=== PATIENT | female | born 1950 | race Caucasian/White ===

== ENCOUNTER 2019-09-07 11:56 | Outpatient (CLI) | payer MEDICARE, SELFPAY ==
--- NOTE | ~2019-09-07 | XR_ITS ---
EXAMINATION: XR chest 2V DATE: 09/07/2019 13:40 INDICATION: Dyspnea on exertion. Preop. TECHNIQUE: Frontal and lateral views of the chest were obtained. COMPARISON: None. FINDINGS: The chest demonstrates clear lungs without pneumonia, pleural effusion, or pneumothorax. Th e heart size is normal. IMPRESSION: 1. No acute cardiopulmonary disease. Reviewed, dictated and finalized at location A.
[2019-09-07 13:53] LABS: Basophils Absolute Auto 0.1 K/mm3 (0.0-0.1); Basophils Percent Auto 1.1 % (0.2-1.2); Eosinophils Absolute Auto 0.3 K/mm3 (0-0.3); Eosinophils Percent Auto 3.1 % (0-4.4); Hematocrit 44.4 % (37.0-47.0); Hemoglobin 14.5 g/dL (12.0-15.0); Immature Granulocyte Absolute 0.03 K/mm3 (0.00-0.031); Immature Granulocyte Percent A 0.4 % (0-0.5); Lymphocytes Absolute Auto 2.07 K/mm3 (0.9-3.2); Lymphocytes Percent Auto 25.7 % (18.3-44.2); Mean Corpuscular HGB Conc 32.7 g/dl (32-36); Mean Corpuscular Hemoglobin 31.5 pg (26-34); Mean Corpuscular Volume 96.5 fl (80-100); Mean Platelet Volume 11.2 fl (7.4-10.4); Monocytes Absolute Auto 0.7 K/mm3 (0.1-0.6); Monocytes Percent Auto 8.1 % (2.6-8.5); Neutrophils Percent Auto 61.6 % (45.5-73.1); Platelet Count Result 249 k/mm3 (150-375); Red Cell Distribution Width 11.7 % (11.5-14.5); White Blood Count 8.1 K/mm3 (4.5-10.0)
[2019-09-07 14:02] LABS: Urine Cotinine NEGATIVE
[2019-09-07 14:13] LABS: Hemoglobin A1C 5.7 % (<5.7)
[2019-09-07 14:14] LABS: Albumin Level 4.5 g/dL (3.5-5.1); Blood Urea Nitrogen 16 mg/dL (7-17); Calcium 9.8 mg/dL (8.4-10.2); Carbon Dioxide 31 mmol/L (22-30); Chloride 103 mmol/L (98-107); Estimated Glomerular Filt Rate > 60; Glucose 96 mg/dL (65-105); Potassium 4.5 mmol/L (3.4-5.0); Sodium 139 mmol/L (137-145)
== END 2019-09-07 11:57 | disposition home or self-care (01) ==
PROVIDERS: PCP Family Medicine Adolescent Medicine; Visit Provider Orthopaedic Surgery
DX: Z01.818 Encounter for other preprocedural examination (principal); M17.12 Unilateral primary osteoarthritis, left knee; E78.5 Hyperlipidemia, unspecified; R06.09 Other forms of dyspnea
CPT/HCPCS: 36415; 71046; 80048; 80307; 82040; 83036; 85025; 87070

== ENCOUNTER 2019-09-12 07:49 | Outpatient (CLI) | payer MEDICARE, SELFPAY ==
--- NOTE | ~2019-09-12 | NM_ITS ---
EXAMINATION: NM xiomara stress w perfusion DATE: 09/12/2019 10:46 INDICATION: Dyspnea TECHNIQUE: Rest images were obtained following intravenous administration of 9.2 mCi Tc99m tetrofosmi n (Myoview). The patient was infused intravenously with Lexiscan (Regadenoson). Then, 88.3 mCi Tc99m tetrofosmin (Myoview) was administered intravenously, and stress images were obtained. Data was recon structed into short axis and horizontal and vertical long axis SPECT images. Gated SPECT images were also obtained. COMPARISON: None. FINDINGS: There is no definite reversible or fixed perfusion abnormality to suggest ischemia or infar ction. There is normal left ventricular chamber size, wall motion and ejection fraction. Left ventr icular ejection fraction measures >70%. IMPRESSION: 1. Normal myocardial perfusion at rest and during stress. 2. Left ventricular ejection fraction measuring >70%. Reviewed, dictated and finalized at location A.
--- NOTE | 2019-09-12 09:20 | EST_ITS ---
Patient Info Name: Nola Vergara Age: 69 years : 1950 Gender: Female Ht: 62 in Wt: 140 lbs BSA: 1.68 m2 Exam Date: 09/12/2019 9:26 AM Exam Location: [facility] Stress Patient Status: Outpatient Admit Date: 09/12/2019 Staff Ordering Physician: Nicolas Temple DO Attending Provider: Nicolas Temple DO Exercise Technologist: Haile Jimenez RDCS, RT Exercise Physician: Nicolas Temple DO Exam Type: CA stress xiomara w NM Study Info A regadenoson stress test was performed. Summary 1. 1. Negative lexiscan stress test for ischemic ST changes by ECG criteria. 2. 2. Baseline hypertension. 3. 3. Nuclear scan to follow and will be reported separately. Please correlate with it. 4. 4. Patient informed of the above results. Protocol: Lexiscan Stress ECG Details Stage: REST Duration (min): 4 min : 53 sec HR (bpm): 78 SBP (mmHg): 210 DBP (mmHg): 75 Stage: REST Duration (min): 22 min : 48 sec HR (bpm): 80 SBP (mmHg): 173 DBP (mmHg): 86 Stage: STAGE 1 Duration (min): 1 min : 0 sec HR (bpm): 110 SBP (mmHg): 180 DBP (mmHg): 60 Stage: RECOVERY Duration (min): 1 min : 0 sec HR (bpm): 114 SBP (mmHg): 180 DBP (mmHg): 60 Stage: RECOVERY Duration (min): 2 min : 0 sec HR (bpm): 117 SBP (mmHg): 180 DBP (mmHg): 60 Stage: RECOVERY Duration (min): 3 min : 0 sec HR (bpm): 109 SBP (mmHg): 166 DBP (mmHg): 62 Stage: RECOVERY Duration (min): 3 min : 29 sec HR (bpm): 110 SBP (mmHg): 166 DBP (mmHg): 62 Rest HR: 80 bpm Peak HR: 119 bpm Rest Sys BP: 173 mmHg Peak Sys BP: 180 mmHg Max Pred HR: 152 bpm % Max Pred HR: 78 % Target HR: 129 bpm Max RPP: 21,420 bpm*mmHg Termination Reason: Completed protocol Cardiac Symptoms: Strange feeling Total Time: 1 min : 0 sec Rest Georges BP: 86 mmHg Peak Georges BP: 60 mmHg Total Dose: 0.4 mg Resting ECG Sinus rhythm, LAFB, LVH. Stress ECG No ST changes. Arrhythmias None. Report Signatures
== END 2019-09-12 07:50 | disposition home or self-care (01) ==
PROVIDERS: PCP Family Medicine Adolescent Medicine; Visit Provider Internal Medicine Cardiovascular Disease
DX: R06.09 Other forms of dyspnea (principal)
CPT/HCPCS: 78452; 93017; A9502; J2785

== ENCOUNTER 2019-12-27 08:02 | Outpatient (CLI) | payer MEDICARE, SELFPAY ==
[2019-12-27 09:40] LABS: Basophils Absolute Auto 0.1 K/mm3 (0.0-0.1); Basophils Percent Auto 1.1 % (0.2-1.2); Eosinophils Absolute Auto 0.3 K/mm3 (0-0.3); Eosinophils Percent Auto 4.7 % (0-4.4); Hematocrit 43.2 % (37.0-47.0); Hemoglobin 14.3 g/dL (12.0-15.0); Immature Granulocyte Absolute 0.02 K/mm3 (0.00-0.031); Immature Granulocyte Percent A 0.3 % (0-0.5); Lymphocytes Absolute Auto 1.57 K/mm3 (0.9-3.2); Lymphocytes Percent Auto 24.6 % (18.3-44.2); Mean Corpuscular HGB Conc 33.1 g/dl (32-36); Mean Corpuscular Hemoglobin 32.1 pg (26-34); Mean Corpuscular Volume 97.1 fl (80-100); Mean Platelet Volume 11.4 fl (7.4-10.4); Monocytes Absolute Auto 0.5 K/mm3 (0.1-0.6); Monocytes Percent Auto 8.3 % (2.6-8.5); Neutrophils Absolute Auto 3.9 K/mm3 (1.3-6.7); Platelet Count Result 240 k/mm3 (150-375); Red Blood Count 4.45 M/mm3 (4.2-5.4); Red Cell Distribution Width 11.6 % (11.5-14.5); White Blood Count 6.4 K/mm3 (4.5-10.0)
[2019-12-27 09:49] LABS: Urine Cotinine NEGATIVE
[2019-12-27 09:58] LABS: Albumin Level 4.4 g/dL (3.5-5.1); Blood Urea Nitrogen 15 mg/dL (7-17); Calcium 9.7 mg/dL (8.4-10.2); Carbon Dioxide 30 mmol/L (22-30); Chloride 102 mmol/L (98-107); Estimated Glomerular Filt Rate > 60; Glucose 114 mg/dL (65-105); Potassium 4.2 mmol/L (3.4-5.0); Sodium 139 mmol/L (137-145)
[2019-12-27 10:17] LABS: Hemoglobin A1C 5.8 % (<5.7)
== END 2019-12-27 08:03 | disposition home or self-care (01) ==
PROVIDERS: PCP Family Medicine Adolescent Medicine; Visit Provider Orthopaedic Surgery
DX: Z01.818 Encounter for other preprocedural examination (principal); M19.90 Unspecified osteoarthritis, unspecified site
CPT/HCPCS: 36415; 80048; 80307; 82040; 83036; 85025; 86850; 86900; 86901; 87070

== ENCOUNTER 2020-01-04 00:50 | Outpatient (CLI) | payer MEDICARE, SELFPAY ==
[2020-01-04 18:05] LABS: SARS-CoV-2 RNA PCR Negative
== END 2020-01-04 00:51 | disposition home or self-care (01) ==
LOC: ANHCOVIDDT 00:51
PROVIDERS: PCP Family Medicine Adolescent Medicine; Visit Provider Orthopaedic Surgery
DX: Z20.828 Contact with and (suspected) exposure to other viral communicable diseases (principal)
CPT/HCPCS: 87635; C9803; U0003

== ENCOUNTER 2020-01-07 02:46 | Day surgery (SDC) | payer MEDICARE, SELFPAY ==
[2019-09-07 13:01] VITALS: BP 167/71; PULSE 66; RESP 18; TEMP 37.2; O2SAT 100; BMI 25.1
[2019-12-27 08:12] VITALS: BP 153/65; PULSE 72; RESP 16; TEMP 37.4; O2SAT 100; BMI 24.0
--- NOTE | 2020-01-04 11:09 | HP_ITS ---
DATE OF SERVICE: 01/07/2020. ADMITTING DIAGNOSIS: Degenerative joint disease, left knee. The patient is a 69-year-old female patient of Dr. Escalona, who presents today for a left total knee arthroplasty. She has been having pain in this knee for years. She has been treating this nonsurgically, cortisone injections as well as anti-inflammatories and she has severe lateral compartment arthritis. She has reached to a point where she feels she is ready to proceed with total knee arthroplasty, rather than continuing nonsurgical treatment and her last injection was on September 18 of this year. She has had no previous surgeries. CURRENT MEDICATIONS: Takes simvastatin 20 mg daily, vitamin D daily, multivitamin daily, Aleve on a daily basis. ALLERGIES: SHE HAS NO KNOWN DRUG ALLERGIES. FAMILY HISTORY: Significant for kidney disease. SOCIAL HISTORY: She is a nonsmoker, nondrinker. PHYSICAL EXAMINATION: VITAL SIGNS: She is 5 feet 2 inches, 137 pounds. Other vital signs per nursing on the morning of surgery. HEENT: Grossly normal. LUNGS: Clear bilaterally. HEART: Regular rate and rhythm. EXTREMITIES: The patient walks with a minimal limp. She has an obvious valgus deformity and left knee range of motion is 0-140 degrees. She does seem to have a good endpoint with valgus stress of the MCL, which partially corrects with varus stress. Hip range of motion is full without discomfort. Negative Stinchfield maneuver. 5/5 quad strength. She has intact sensation in the left lower extremity. 2+ dorsalis pedis and posterior tibial pulse. SKIN: All normal, except for 1 small skin lesion, which appeared recently which is 2 inches to the distal edge of the tibial tubercle. IMAGING DATA: X-rays demonstrate severe lateral compartment arthritis. She has a grade 2 valgus deformity. IMPRESSION: Going to felt as severe lateral compartment arthritis with continued symptoms. She feels again she is ready to proceed with total knee arthroplasty. Surgical procedure as well as risks and complications were discussed. All questions were answered. We will proceed. The patient will see Dr. Sullivan for presurgical clearance. She has also seen Dr. Temple and has had a recent stress test done, which was normal and showed an ejection fraction of 70%. The patient will avoid her Aleve and any other aspirin, ibuprofen products 1 week prior to surgery. Her nasal swab was negative. Chem panel, creatinine 0.80, GFR greater than 60. The rest of Chem panel was within normal limits. Hemoglobin is 14.3, platelets are 240. D I MT: Ary
[2020-01-07] VITALS (13 sets, daily range): BP systolic 116–155; BP diastolic 49–61; PULSE 74–94; RESP 8–18; TEMP 36.2–36.7; O2SAT 95–100; BMI 23.8
--- NOTE | ~2020-01-07 | XR_ITS ---
EXAMINATION: XR knee LT 2V DATE: 01/07/2020 11:05 CDT INDICATION: Left total knee arthroplasty TECHNIQUE: 2 views left knee FINDINGS: There is a left total knee arthroplasty in expected position. Subcutaneous gas with fluid and air in the joint are consistent with recent surgery. No evidence of periprosthetic fracture. IMPRESSION: 1. Recent left total knee arthroplasty. Reviewed, dictated and finalized at location B.
[2020-01-07] MEDS: ACETAMINOPHEN 500 MG TABLET 1000 MG PO ×4 (06:30→23:46)
[2020-01-07] MEDS: KETOROLAC 15 MG/ML VIAL (*BKC) IV PUSH (07:00)
[2020-01-07] MEDS: LACTATED RINGERS 1,000 ML 30 ML IV CONT ×3 (07:00→11:22)
[2020-01-07] MEDS: TRANEXAMIC ACID 1,000MG/ISO100 1,000 MG/100 ML BAG 200 MG IVPB (07:00)
--- NOTE | 2020-01-07 07:01 | WPDANESEPPF ---
Anes - Initial Pre Proc Eval Procedure: Operation Date: 01/07/20 07:30 Proposed Procedures p Left Total Knee Arthroplasty - Kenneth Chowdhury MD Date/Time: 01/07/20 07:01 Surgeon: Kenneth Chowdhury MD Pre Op Diagnosis: OA Left Knee Patient Data Age: 69 Gender: F Height: 5 ft 3 in Weight: 61.5 kg Last Vital Signs Temp 37.4 C 12/27/19 08:12 Pulse 72 12/27/19 08:12 Resp 16 12/27/19 08:12 BP 153/65 H 12/27/19 08:12 Pulse Ox 100 12/27/19 08:12 Allergies Allergy/AdvReac Type Severity Reaction Status Date / Time No Known Allergies Allergy Verified 12/27/19 08:10 Home Medications Medication Instructions Recorded Confirmed Type Bcomplex-C #13-folic acid 1 mg-vit 1 tablet PO DAILY 08/30/19 12/27/19 History D3 1,750 unit disintegrating tablet cholecalciferol (vitamin D3) 25 25 mcg PO DAILY 08/30/19 12/27/19 History mcg (1,000 unit) capsule naproxen sodium 220 mg capsule 440 mg PO DAILY PRN 08/30/19 12/27/19 History simvastatin 20 mg tablet 40 mg PO DAILY tablet 08/30/19 12/27/19 History Patient hx anesthesia problems: none Family hx anesthesia problems: none PMFSH Past Medical History Medical History Hyperlipidemia Surgical History Surgical History History of breast biopsy History of colonoscopy Family History Family History Father Diabetes mellitus Family history of coronary artery disease Mother Hypertension Family history of kidney disease Other Family history of malignant neoplasm of breast in first degree relative Social History Social History Smoking status: Never smoker Alcohol intake: current Anes - Eval Final PreProcedure Day of Procedure 01/07/20 07:01 Patient weight: normal Heart: regular rate and rhythm Lungs: clear to auscultation Airway: Mallampati scale class II Neurological: alert and oriented Last oral intake: >/= 8 hours ASA classification: II Emergent: no Anesthetic plan: proceed Anesthesia type and monitoring: general LMA and standard monitoring Informed Consent: The patient's anesthetic plan and its attendant risks and benefits were discussed with the patient/family/POA. Questions were solicited and answers provided to the satisfaction of the patient/family/POA.
--- NOTE | 2020-01-07 07:20 | WPDHPUPDATE1 ---
History and Physical Update Update Date/Time: 01/07/20 07:20 History and Physical has been reviewed, including an updated exam of the patient. There are NO changes in the patient's condition.1mm echar pretibial benign. Risks, benefits, and alternatives have been discussed and questions answered. Patient agrees to proceed with procedure.
[2020-01-07] MEDS: ceFAZolin 2 GM/D5W 50 ML 2 GM/50 ML BAG IVPB (07:28)
[2020-01-07] MEDS: IBUPROFEN IV 800 MG/200 ML 800 MG/200 ML BAG 400 MG IVPB (08:02)
[2020-01-07] MEDS: ceFAZolin SODIUM 1 GM VIAL 3 GM IRRIGATION (08:24)
[2020-01-07] MEDS: GENTAMICIN BONE CEMENT REFOBACIN 1 EACH TOPICAL (09:33)
[2020-01-07] MEDS: ceFAZolin SODIUM 1 GM VIAL IV PUSH (09:57)
[2020-01-07] MEDS: TRANEXAMIC ACID 1,000 MG/10 ML AMPUL 1000 MG IV PUSH (09:57)
--- NOTE | 2020-01-07 10:24 | SUR.OPER ---
EBL 150 ml Urine output 300 ml
--- NOTE | 2020-01-07 11:15 | PM.PROC ---
Procedure Note - Detailed Date of procedure: 01/07/20 Pre-op diagnosis: OA Left Knee Osteoarthritis left knee with grade 2 valgus deformity Post-op diagnosis: same Procedure performed: Left total knee arthroplasty Description of procedure: Patient was brought to the operating room and general anesthesia was administered in the left leg prepped draped usual fashion. She received 2 g of Ancef weight based vancomycin 1 g of tranexamic acid preoperatively. Under anesthesia the knee had a few degrees of hyperextension. She had moderate lateral pseudolaxity and appeared to partially correct her grade 2 valgus deformity. The limb is exsanguinated and tourniquet elevated to 250 mmHg. A 7 in longitudinal midline incision was used and a vastus medialis splitting approach utilized. Infrapatellar and suprapatellar fat pads were excised the quadriceps synovectomy carried out. The patella showed mild central chondromalacia only otherwise there were no degenerative changes in the patella or the trochlea for that matter. A minimal lateral facetectomy was performed. A guide dorota was inserted down the femoral canal after aspiration of canal contents and according to preoperative templating, using the 4 degree setting 9 mm of bone removed the distal femur. This removed about 2 laterally. We were conservative due to her hyper extension. The PCL was released. Next the tibial was cut removing about a mm of bone from the low point of the lateral tibial plateau. This removed the lateral tibial osteophyte with the wafer fortunately. Alignment of the tibial cut was confirmed to be appropriate. Meniscal remnants were excised. In flexion the flexion gap measured 8 mm medially and 14 mm laterally. We used the femoral sizing guide set at 5? of external rotation and additionally rotating the posterior foot a mm or mm and a half posterior to the posterior lateral femoral condyle which matched Whitesides line exactly. There was full-thickness cartilage loss and some bony eburnation of the posterolateral femoral condyle resulting in hypoplasia there. We cut to a size 60 which was just a little bit wide approximately 2 mm wider than the distal surface of the femur but fit appropriately relative to the anterior cortex. We trialed and I noted that with the 10 CR insert the knee was tighter medially than laterally. There was a is substantial lack of extension. We removed additional 2 mm of bone from the distal femur at this time chamfers revisited. The tibia was sized to a 67 which fit line to line posterolateral and anteromedial with the component had proper rotation referenced off the medial 1/3 of the tibial tubercle and the anterior cortex of the tibia as well as the 2nd metatarsal. This was punched. We trialed again and the knee lacked about 5? of extension. It was quite tight laterally in this position opening up medially about 2 or 3 mm. We pie crusted the ITB band which brought us out to few degrees short of full extension with the 10 mm insert. At 90? of flexion the lateral side opened up 3-4 mm in the medial side was tight so we had poor balance at this time at 90? of flexion. Due to the fact that the size 60 femoral component was a little bit wide, I elected to downsize to a size 57.5 femur. We removed the medial pin from the back of the cutting block so that the lateral film pain purchase in the posterior mm in pin hole on the distal femur with the medial side good flow. We externally rotated this an additional 2 mm so that the, guide set flush on the anterior cortex medial edge and was going to remove an additional 2 or 2.5 mm from the posterior aspect of the medial femoral condyle to give us better balance in flexion. The cutting block was stabilized in this position with threaded pins and the posterior medial cut was revisited and that chamfer cuts and the anterior cut. I should mention that before positioning the cutting guide we did remove an additional 2 mm of bone from the
--- NOTE | 2020-01-07 12:00 | ADMGEN ---
This patient, Nola Vergara, was admitted to 2 Medical Room 241-. Patient/family oriented to hospital policies and general routines including ID bracelet, bed and alarms, visiting hours, pain management, procedures, bathroom and other care routines, personal items, smoking policy, room service/diet, and visiting hours. Valuables list has been completed. Information on how to activate the Rapid Response Team has been discussed. Patient/Family are encouraged to report perceived risks to care and to ask questions if they do not understand what they are told or what they should do.
[2020-01-07] MEDS: SODIUM CHLORIDE 0.9% IV 1,000 ML 125 ML IV CONT (13:39)
[2020-01-07] MEDS: ONDANSETRON INJ 4 MG/2 ML VIAL IV PUSH (15:21)
[2020-01-07] MEDS: SENNA/DOCUSATE SODIUM TABLET 2 TAB PO (16:58)
[2020-01-07] MEDS: FAMOTIDINE 20 MG TABLET PO (22:02)
[2020-01-07] MEDS: APIXABAN 2.5 MG TABLET PO (22:03)
[2020-01-08] VITALS: BP 125/51; PULSE 66; RESP 20; TEMP 36.7; O2SAT 97
[2020-01-08 04:00] VITALS: BP 112/49; PULSE 71; RESP 20; TEMP 36.7; O2SAT 100
[2020-01-08 06:03] LABS: Basophils Percent Auto 0.3 % (0.2-1.2); Eosinophils Percent Auto 0.1 % (0-4.4); Hematocrit 30.6 % (37.0-47.0); Hemoglobin 10.3 g/dL (12.0-15.0); Immature Granulocyte Absolute 0.09 K/mm3 (0.00-0.031); Immature Granulocyte Percent A 0.6 % (0-0.5); Lymphocytes Absolute Auto 1.58 K/mm3 (0.9-3.2); Lymphocytes Percent Auto 10.8 % (18.3-44.2); Mean Corpuscular HGB Conc 33.7 g/dl (32-36); Mean Corpuscular Hemoglobin 31.9 pg (26-34); Mean Corpuscular Volume 94.7 fl (80-100); Mean Platelet Volume 11.4 fl (7.4-10.4); Monocytes Absolute Auto 1.5 K/mm3 (0.1-0.6); Monocytes Percent Auto 9.9 % (2.6-8.5); Neutrophils Absolute Auto 11.5 K/mm3 (1.3-6.7); Neutrophils Percent Auto 78.3 % (45.5-73.1); Platelet Count Result 174 k/mm3 (150-375); Red Blood Count 3.23 M/mm3 (4.2-5.4); Red Cell Distribution Width 11.4 % (11.5-14.5); White Blood Count 14.7 K/mm3 (4.5-10.0)
[2020-01-08] MEDS: ACETAMINOPHEN 500 MG TABLET 1000 MG PO ×2 (06:05→11:57)
[2020-01-08 06:17] LABS: Blood Urea Nitrogen 11 mg/dL (7-17); Calcium 8.5 mg/dL (8.4-10.2); Carbon Dioxide 26 mmol/L (22-30); Chloride 102 mmol/L (98-107); Estimated CRCL calculation 48 ml/min; Estimated Glomerular Filt Rate > 60; Glucose 112 mg/dL (65-105); Potassium 3.6 mmol/L (3.4-5.0); Sodium 134 mmol/L (137-145)
--- NOTE | 2020-01-08 06:25 | PM.PNORT ---
Progress Note: A&P Additional Plan POD 1 alert avss labs-noted. pt had quite a bit of nausea yesterday right after surg. doing better this am. pain is well controlled, wd-dry pt has been up walking yesterday, plan to have pt work with PT today-if does well with morning PT will send home, if pt feels she needs second PT session will then d/c later today Subjective Subjective Date/Time Seen: 01/08/20 06:25 Objective Data Vital Signs Vital Signs: Vital Signs - 24 hr 01/07/20 07:28 01/07/20 10:46 01/07/20 11:00 Temperature 36.4 C L 36.2 C L Pulse Rate 74 81 94 Respiratory Rate 18 8 L 12 Blood Pressure 155/61 H 120/51 L 118/51 L Pulse Oximetry 100 99 100 01/07/20 11:15 01/07/20 11:30 01/07/20 11:45 Temperature Pulse Rate 91 91 86 Respiratory Rate 13 11 L 16 Blood Pressure 126/53 L 116/57 L 130/49 L Pulse Oximetry 97 96 95 01/07/20 12:00 01/07/20 12:05 01/07/20 12:20 Temperature 36.6 C 36.4 C Pulse Rate 89 89 93 Respiratory Rate 13 16 14 Blood Pressure 128/53 L 128/53 L 130/51 L Pulse Oximetry 100 98 97 01/07/20 12:50 01/07/20 13:50 01/07/20 18:00 Temperature 36.5 C 36.5 C 36.7 C Pulse Rate 83 81 81 Respiratory Rate 16 16 14 Blood Pressure 126/52 L 134/59 L 135/57 L Pulse Oximetry 98 99 100 01/07/20 20:00 01/08/20 00:00 01/08/20 04:00 Temperature 36.7 C 36.7 C 36.7 C Pulse Rate 79 66 71 Respiratory Rate 18 20 20 Blood Pressure 137/49 L 125/51 L 112/49 L Pulse Oximetry 99 97 100 Intake/Output Intake/Output: Intake & Output 01/05/20 01/06/20 01/07/20 01/08/20 23:59 23:59 23:59 23:59 Intake Total 2360 490 Output Total 600 800 Balance 1760 -310 Meds/Results Medications: Active Medications Generic Name Dose Route Start Last Admin Trade Name Freq PRN Reason Stop Dose Admin Acetaminophen 1,000 mg 01/07/20 12:03 01/08/20 06:05 Tylenol Tablet PO 1,000 mg Q6H BONITA Administration Apixaban 2.5 mg 01/07/20 21:00 01/07/20 22:03 Eliquis PO 01/19/20 09:01 2.5 mg Q12HR BONITA Administration Celecoxib 200 mg 01/08/20 08:00 Celebrex PO DAILY@0800 BONITA Diphenhydramine HCl 25 mg 01/07/20 12:03 Benadryl Inj IV PUSH Q6H PRN Itching Famotidine 20 mg 01/07/20 21:00 01/07/20 22:02 Pepcid PO 20 mg Q12HR BONITA Administration Cefazolin Sodium 1 gm in 50 mls @ 100 mls/hr 01/07/20 15:00 01/08/20 06:05 Ancef 1 Gm/D5w 50 Ml Pm IVPB 01/08/20 07:01 100 mls/hr Q8H BONITA Administration Vancomycin HCl 1,000 mg in 250 mls @ 250 mls/hr 01/07/20 19:00 01/08/20 05:20 Vancomycin 1,000 Mg/D5w 250 Ml IVPB 01/08/20 19:01 Infused Q12H [facility] Infusion Morphine Sulfate 2 mg 01/07/20 12:03 Morphine Sulfate Inj IV PUSH Q2H PRN Breakthrough pain rated 4-6 Naloxone HCl 0.1 mg 01/07/20 12:03 Narcan IV PUSH Q2M PRN Opiate Reversal Ondansetron HCl 4 mg 01/07/20 12:03 01/07/20 15:21 Zofran Inj IV PUSH 4 mg Q4H PRN Administration Nausea And Vomiting Oxycodone HCl 2.5 mg 01/07/20 14:00 01/08/20 06:05 Roxicodone Ir Tablet PO 2.5 mg Q4H BONITA Administration Oxycodone HCl 2.5 mg 01/07/20 12:03 Roxicodone Ir Tablet PO Q4H PRN Pain Rated 1-3 Polyethylene Glycol 17 gm 01/08/20 09:00 Miralax PO QAM BONITA Senna/Docusate Sodium 2 tab 01/07/20 17:00 01/07/20 16:58 Senokot S Tablet PO 2 tab BID BONITA Administration Simvastatin 40 mg 01/08/20 09:00 Zocor PO DAILY BONITA Vitamin D 1,000 unit 01/08/20 09:00 Vitamin D PO DAILY [facility] Radiology Results: ITS Impressions Knee X-Ray 01/07/20 11:05 IMPRESSION: 1. Recent left total knee arthroplasty. Labs Labs: Laboratory Results - last 24 hr 01/08/20 01/08/20 05:06 05:06 WBC 14.7 H RBC 3.23 L Hgb 10.3 L D Hct 30.6 L MCV 94.7 MCH 31.9 MCHC 33.7 RDW 11.4 L Plt Count 174 MPV 11.4 H Immature Gran % (Auto) 0.6 H Neut % (Auto) 78.3 H
--- NOTE | 2020-01-08 07:35 | P.PNAN_ITS ---
Anes - Prog Note Post-Op Date/Time: 01/08/20 07:35 Cardiovascular status: normal Respiratory status: normal Airway patency: baseline Mental status: baseline Post-Op hydration status: normal Vital Signs: Last Vital Signs Temp 36.7 C 01/08/20 04:00 Pulse 71 01/08/20 04:00 Resp 20 01/08/20 04:00 BP 112/49 L 01/08/20 04:00 Pulse Ox 100 01/08/20 04:00 I/O: Intake & Output 01/07/20 01/07/20 01/08/20 15:59 23:59 07:59 Intake Total 550 1660 540 Output Total 600 800 Balance 550 1060 -260 Laboratory Tests 01/08/20 05:06 01/08/20 05:06 01/08/20 01/08/20 05:06 05:06 WBC 14.7 H RBC 3.23 L Hgb 10.3 L D Hct 30.6 L MCV 94.7 MCH 31.9 MCHC 33.7 RDW 11.4 L Plt Count 174 MPV 11.4 H Immature Gran % (Auto) 0.6 H Neut % (Auto) 78.3 H Lymph % (Auto) 10.8 L [place] % (Auto) 9.9 H Eos % (Auto) 0.1 Baso % (Auto) 0.3 Lymph # (Auto) 1.58 [place] # (Auto) 1.5 H Eos # (Auto) 0.0 Baso # (Auto) 0.0 Abs Immat Gran (auto) 0.09 H Absolute Neuts (auto) 11.5 H Absolute Nucleated RBC 0.0 Nucleated RBC % 0.0 Sodium 134 L Potassium 3.6 Chloride 102 Carbon Dioxide 26 BUN 11 Creatinine 0.80 Estim Creat Clear Calc 48 Estimated GFR > 60 Glucose 112 H Calcium 8.5 Post-procedural complaints: none Patient Feedback: Patient satisfied with anesthetic care.
[2020-01-08 08:00] VITALS: BP 122/63; PULSE 74; RESP 15; TEMP 36.4; O2SAT 97
[2020-01-08] MEDS: SENNA/DOCUSATE SODIUM TABLET 2 TAB PO (08:36)
[2020-01-08] MEDS: polyethylene glycoL 3350 17 GM POWD.PACK PO (08:36)
[2020-01-08] MEDS: SIMVASTATIN 20 MG TABLET 40 MG PO (08:37)
[2020-01-08] MEDS: APIXABAN 2.5 MG TABLET PO (08:37)
[2020-01-08] MEDS: FAMOTIDINE 20 MG TABLET PO (08:37)
[2020-01-08] MEDS: CHOLECALCIFEROL 1,000 UNIT TABLET 1000 UNITS PO (08:37)
[2020-01-08] MEDS: CELECOXIB 200 MG CAPSULE PO (08:37)
--- NOTE | 2020-01-08 20:46 | DS_ITS ---
DATE OF DISCHARGE: 01/08/2020 DIAGNOSIS: Degenerative joint disease, left knee. The patient is a 69-year-old female who underwent left total knee arthroplasty by Dr. Chowdhury. On 01/07/2020, underwent procedure without any complications. Postoperatively, she was quite a bit nauseated immediately after surgery and through the latter part of the day on the day of surgery. This is improved overnight to the point where on postop day 1, her nausea has completely gone. She is weightbearing as tolerated. She is on scheduled Tylenol as well as oxycodone 2.5 mg for pain control. She is also on Celebrex once a day. Her wound is dry. She has had a Mepilex dressing over it. Neurovascularly, she is intact. She was up walking on the day of surgery and is comfortable. Pain is well controlled. We will schedule her to be discharged home on January 07. Postop day 1, hemoglobin was 10.3, platelets 174, sodium is slightly low 134, but the patient was asymptomatic from this. The patient was advised to keep the leg elevated at home, but do her exercise on a regular basis. She has outpatient therapy starting on of this week. She will also go home on Senokot and MiraLAX for constipation. The patient was advised any questions or concerns when she goes home, she is to call the office; otherwise, we will see her on appointed date. D I MT: Ary
== END 2020-01-08 12:32 | disposition home or self-care (01) ==
LOC: ANHSURGERY 06:04 → ANH2MED 12:09
PROVIDERS: Physician Assistant Surgical; PCP Family Medicine Adolescent Medicine; Visit Provider Orthopaedic Surgery
PROC: (CPT 27447; principal; 2020-01-07 07:30)
DX: M17.12 Unilateral primary osteoarthritis, left knee (principal); E78.5 Hyperlipidemia, unspecified
CPT/HCPCS: 27447; 36415; 73560; 80048; 85025; 97110; 97116; 97161; 97165; 97530; 97535; A9270; C1713; C1776; J0171; J0690; J1100; J1170; J1741; J1885; J2270; J2405; J2704; J2795; J3010; J3370; J7030; J7120

== ENCOUNTER 2020-04-14 01:00 | Outpatient (CLI) | payer MEDICARE, SELFPAY ==
[2020-04-14 17:42] LABS: SARS-CoV-2 RNA PCR Negative
== END 2020-04-14 01:01 | disposition home or self-care (01) ==
LOC: ANHCOVIDDT 01:00
PROVIDERS: PCP Family Medicine Adolescent Medicine; Visit Provider Internal Medicine Gastroenterology
DX: Z01.812 Encounter for preprocedural laboratory examination (principal); Z20.828 Contact with and (suspected) exposure to other viral communicable diseases
CPT/HCPCS: 87635; C9803; U0003

== ENCOUNTER 2020-04-16 02:04 | Day surgery (SDC) | payer MEDICARE, SELFPAY ==
[2020-04-09 10:33] VITALS: BMI 23.8
[2020-04-16 08:19] VITALS: BP 185/66; PULSE 73; RESP 18; TEMP 37.1; O2SAT 100; BMI 23.5
[2020-04-16] MEDS: LACTATED RINGERS 1,000 ML 150 ML IV CONT (08:29)
[2020-04-16] MEDS: AMPICILLIN 2 GM/NS 100 ML 2 GM/100 ML BAG IVPB (08:29)
--- NOTE | 2020-04-16 08:48 | WPDGICN ---
Assessment and Plan Assessment and plan (1) Encounter for screening colonoscopy: Code(s): Z12.11 - Encounter for screening for malignant neoplasm of colon Status: Acute Assessment and Plan: Patient appears to be at average risk for colon cancer. Screening colonoscopy advised now. Last exam was 10 years ago. Further recommendations may be given after endoscopy. GI Consult Note Consult date/time: 04/16/20 08:48 HPI: Nola Vergara is a 69 year old female Seen in evaluation at the request of Dr. Marily Garcia, also followed by Dr. Chance Sullivan. Patient presents for screening colonoscopy. She states that her current weight appetite bowel movements are normal. She denies any blood in her stools. Her appetite is normal. She denies any bleeding. She has had no abdominal pain. Family history is noncontributory. Review of Systems Review of Systems: All systems reviewed & are unremarkable except as noted in HPI and below PMFSH Past Medical History Medical History (Updated 04/16/20 @ 08:50 by Itz Ballard MD) Hyperlipidemia Surgical History Surgical History History of breast biopsy History of colonoscopy Family History Family History Father Diabetes mellitus Family history of coronary artery disease Mother Hypertension Family history of kidney disease Other Family history of malignant neoplasm of breast in first degree relative Social History Social History Smoking status: Never smoker Alcohol intake: never Substance use: never Substance use type: does not use Living arrangements: alone Gender identity (if verbalized by the patient): Female Spiritual care concerns: No Meds Home Medications and Allergies Home Medications Medication Instructions Recorded Confirmed Type Bcomplex-C #13-folic acid 1 mg-vit 1 tablet PO DAILY 08/30/19 04/09/20 History D3 1,750 unit disintegrating tablet cholecalciferol (vitamin D3) 25 25 mcg PO DAILY 08/30/19 04/09/20 History mcg (1,000 unit) capsule simvastatin 20 mg tablet 40 mg PO DAILY tablet 08/30/19 04/09/20 History acetaminophen 1,000 mg PO Q6H #90 tablet 01/08/20 04/09/20 Rx polyethylene glycol 3350 [Miralax] 17 g PO QAM #30 ea 01/08/20 Rx sennosides-docusate sodium 2 tab PO BID #60 tablet 01/08/20 Rx [Senokot-S] naproxen sodium [Aleve] 220 mg PO BID 04/09/20 04/09/20 History Allergies Allergy/AdvReac Type Severity Reaction Status Date / Time No Known Allergies Allergy Verified 04/09/20 10:28 Vital Signs Vital Signs - 24 hr 04/16/20 08:19 Temperature 98.8 F Pulse Rate 73 Respiratory Rate 18 Blood Pressure 185/66 H Pulse Oximetry 100 Exam Narrative: Exam Narrative: Physical exam reveals patient to be alert. Vital signs stable. HEENT exam unremarkable. She is anicteric. Lungs are clear to auscultation and percussion. Heart is without murmur or extra sounds. Abdominal exam bowel sounds are present soft nontender with no organomegaly. Digital external rectal exam is normal.
--- NOTE | 2020-04-16 08:57 | WPDANESEPPF ---
Anes - Initial Pre Proc Eval Procedure: Operation Date: 04/16/20 09:00 Proposed Procedures p Screening Colonoscopy - Itz Ballard MD Date/Time: 04/16/20 08:57 Surgeon: Itz Ballard MD Pre Op Diagnosis: Neoplasm Screening Patient Data Age: 69 Gender: F Height: 5 ft 3 in Weight: 60.2 kg Last Vital Signs Temp 98.8 F 04/16/20 08:19 Pulse 73 04/16/20 08:19 Resp 18 04/16/20 08:19 BP 185/66 H 04/16/20 08:19 Pulse Ox 100 04/16/20 08:19 Allergies Allergy/AdvReac Type Severity Reaction Status Date / Time No Known Allergies Allergy Verified 04/09/20 10:28 Home Medications Medication Instructions Recorded Confirmed Type Bcomplex-C #13-folic acid 1 mg-vit 1 tablet PO DAILY 08/30/19 04/09/20 History D3 1,750 unit disintegrating tablet cholecalciferol (vitamin D3) 25 25 mcg PO DAILY 08/30/19 04/09/20 History mcg (1,000 unit) capsule simvastatin 20 mg tablet 40 mg PO DAILY tablet 08/30/19 04/09/20 History acetaminophen 1,000 mg PO Q6H #90 tablet 01/08/20 04/09/20 Rx polyethylene glycol 3350 [Miralax] 17 g PO QAM #30 ea 01/08/20 Rx sennosides-docusate sodium 2 tab PO BID #60 tablet 01/08/20 Rx [Senokot-S] naproxen sodium [Aleve] 220 mg PO BID 04/09/20 04/09/20 History Patient hx anesthesia problems: none Family hx anesthesia problems: none PMFSH Past Medical History Medical History (Updated 04/16/20 @ 08:52 by Fredis Sharpe MD) Arthritis Hyperlipidemia Surgical History Surgical History History of breast biopsy History of colonoscopy Family History Family History Father Diabetes mellitus Family history of coronary artery disease Mother Hypertension Family history of kidney disease Other Family history of malignant neoplasm of breast in first degree relative Social History Social History Smoking status: Never smoker Alcohol intake: never Substance use: never Substance use type: does not use Living arrangements: alone Gender identity (if verbalized by the patient): Female Spiritual care concerns: No Anes - Eval Final PreProcedure Day of Procedure 04/16/20 08:57 Patient weight: normal Heart: regular rate and rhythm Lungs: clear to auscultation Airway: Mallampati scale class II Neurological: alert and oriented Last oral intake: >/= 8 hours ASA classification: II Emergent: no Anesthetic plan: proceed Anesthesia type and monitoring: general GIVS and standard monitoring Informed Consent: The patient's anesthetic plan and its attendant risks and benefits were discussed with the patient/family/POA. Questions were solicited and answers provided to the satisfaction of the patient/family/POA.
[2020-04-16 09:57] VITALS: BP 119/62; PULSE 59; RESP 16; O2SAT 95
[2020-04-16 10:07] VITALS: BP 119/57; PULSE 58; RESP 15; O2SAT 100
[2020-04-16 10:17] VITALS: BP 146/54; PULSE 69; RESP 16; O2SAT 100
== END 2020-04-16 10:30 | disposition home or self-care (01) ==
PROVIDERS: PCP Family Medicine Adolescent Medicine; Visit Provider Internal Medicine Gastroenterology
PROC: 0DJD8ZZ Inspection of Lower Intestinal Tract, Via Natural or Artificial Opening Endoscopic (ICD-10-PCS; CPT 45378; principal; 2020-04-16 09:00)
DX: Z12.11 Encounter for screening for malignant neoplasm of colon (principal); E78.5 Hyperlipidemia, unspecified; M19.90 Unspecified osteoarthritis, unspecified site
CPT/HCPCS: G0121; J0290; J2704; J7120

== ENCOUNTER 2021-09-21 00:26 | Day surgery (SDC) | payer MEDICARE, SELFPAY ==
[2021-09-09 14:58] VITALS: BMI 25.4
[2021-09-21 10:45] VITALS: BP 149/68; PULSE 62; RESP 18; TEMP 36.4; O2SAT 100; BMI 24.6
[2021-09-21] MEDS: LACTATED RINGERS 1,000 ML 150 ML IV CONT (11:05)
--- NOTE | 2021-09-21 11:13 | WPDANESEPPF ---
Anes - Initial Pre Proc Eval Procedure: Operation Date: 09/21/21 11:30 Proposed Procedures p Screening Colonoscopy - Silas Garcia MD Date/Time: 09/21/21 11:13 Surgeon: Silas Garcia MD Pre Op Diagnosis: neoplasm screening Patient Data Age: 71 Gender: F Height: 1.57 m Weight: 61.1 kg Last Vital Signs Temp 97.5 F L 09/21/21 10:45 Pulse 62 09/21/21 10:45 Resp 18 09/21/21 10:45 BP 149/68 H 09/21/21 10:45 Pulse Ox 100 09/21/21 10:45 Allergies Allergy/AdvReac Type Severity Reaction Status Date / Time No Known Allergies Allergy Verified 09/21/21 10:55 Home Medications Medication Instructions Recorded Confirmed Type Bcomplex-C #13-folic acid 1 mg-vit 1 tablet PO DAILY 08/30/19 09/21/21 History D3 1,750 unit disintegrating tablet cholecalciferol (vitamin D3) 25 25 mcg PO DAILY 08/30/19 09/21/21 History mcg (1,000 unit) capsule acetaminophen 1,000 mg PO Q6H #90 tablet 01/08/20 09/21/21 Rx naproxen sodium [Aleve] 220 mg PO BID 04/09/20 09/21/21 History prednisone 10 mg tablet See Rx Instructions PO DAILY #40 07/31/21 09/21/21 Rx tablet simvastatin 20 mg tablet 40 mg PO DAILY #180 tablet 09/09/21 09/21/21 Rx Patient hx anesthesia problems: none Family hx anesthesia problems: none Results Review: All pre-operative results and documents have been reviewed as part of the pre-operative evaluation. [facility] Past Medical History Medical History (Updated 07/31/21 @ 10:19 by Chance Sullivan MD) Arthritis Surgical History Surgical History (Updated 07/31/21 @ 07:59 by Chance Sullivan MD) History of breast biopsy History of colonoscopy 04/15 Normal Repeat 04/25 History of total left knee replacement 2019 Family History Family History (Updated 07/31/21 @ 08:01 by Chance Sullivan MD) Father Diabetes mellitus Heart disease Mother Hypertension Renal failure Sibling Pancreatic cancer Renal failure Hypercholesterolemia Other Family history of malignant neoplasm of breast in first degree relative Social History Social History (Updated 07/31/21 @ 09:14 by Jin Nixon MA) Smoking status: Never smoker Second hand tobacco smoke exposure: No Alcohol intake: never Substance use: never Substance use type: does not use Living arrangements: alone Gender identity (if verbalized by the patient): Female Sexual Orientation (if Verbalized by the Patient): Straight or Heterosexual Spiritual care concerns: No Agree to blood products: Yes Anes - Eval Final PreProcedure Day of Procedure 09/21/21 11:13 Patient weight: normal Heart: regular rate and rhythm Lungs: clear to auscultation Airway: Mallampati scale class II Neurological: alert and oriented Last oral intake: >/= 8 hours ASA classification: II Emergent: no Anesthetic plan: proceed Anesthesia type and monitoring: general GIVS and standard monitoring Results Review: All pre-operative results and documents have been reviewed as part of the pre-operative evaluation. Informed Consent: The patient's anesthetic plan and its attendant risks and benefits were discussed with the patient/family/POA. Questions were solicited and answers provided to the satisfaction of the patient/family/POA.
--- NOTE | 2021-09-21 11:46 | PM.HPGS ---
History of Present Illness History of Present Illness Consent: Risks, benefits, and alternatives have been discussed and questions answered. Patient agrees to proceed with procedure. Chief complaint: neoplasm screening Narrative: Nola Vergara is a 71 year old female here for screening colonoscopy Review of Systems Constitutional: Constitutional: Denies headache(s) and Denies weakness Eyes: Eyes: Denies blurry vision ENT: Reports Normal hearing present, Denies headache(s) and Denies neck pain Cardiovascular: Cardiovascular: Denies chest pain and Denies dyspnea Respiratory: Respiratory: Denies dyspnea Gastrointestinal: Gastrointestinal: Reports no additional gastrointestinal complaints Genitourinary: Genitourinary: Denies dysuria Musculoskeletal: Musculoskeletal: Denies neck pain Integumentary/Breasts: Skin/Breast: Denies dry skin Neurologic: Reports Normal hearing present, Denies headache(s) and Denies weakness Psychiatric: Psychiatric: Denies anxiety Endocrine: Endocrine: Denies change in body appearance Hematologic/Lymphatic: Hematologic/Lymphatic: Denies easy bleeding Allergic/Immunologic: Allergic/Immunologic: Denies urticaria PMFSH Past Medical History Medical History (Updated 09/21/21 @ 11:46 by Silas Garcia MD) Arthritis Colon cancer screening Surgical History Surgical History (Updated 07/31/21 @ 07:59 by Chance Sullivan MD) History of breast biopsy History of colonoscopy 04/15 Normal Repeat 04/25 History of total left knee replacement 2019 Family History Family History (Updated 07/31/21 @ 08:01 by Chance Sullivan MD) Father Diabetes mellitus Heart disease Mother Hypertension Renal failure Sibling Pancreatic cancer Renal failure Hypercholesterolemia Other Family history of malignant neoplasm of breast in first degree relative Social History Social History (Updated 07/31/21 @ 09:14 by Jin Nixon MA) Smoking status: Never smoker Second hand tobacco smoke exposure: No Alcohol intake: never Substance use: never Substance use type: does not use Living arrangements: alone Gender identity (if verbalized by the patient): Female Sexual Orientation (if Verbalized by the Patient): Straight or Heterosexual Spiritual care concerns: No Agree to blood products: Yes Meds Home Medications and Allergies Home Medications Medication Instructions Recorded Confirmed Type Bcomplex-C #13-folic acid 1 mg-vit 1 tablet PO DAILY 08/30/19 09/21/21 History D3 1,750 unit disintegrating tablet cholecalciferol (vitamin D3) 25 25 mcg PO DAILY 08/30/19 09/21/21 History mcg (1,000 unit) capsule acetaminophen 1,000 mg PO Q6H #90 tablet 01/08/20 09/21/21 Rx naproxen sodium [Aleve] 220 mg PO BID 04/09/20 09/21/21 History prednisone 10 mg tablet See Rx Instructions PO DAILY #40 07/31/21 09/21/21 Rx tablet simvastatin 20 mg tablet 40 mg PO DAILY #180 tablet 09/09/21 09/21/21 Rx Allergies Allergy/AdvReac Type Severity Reaction Status Date / Time No Known Allergies Allergy Verified 09/21/21 10:55 Vital Signs Vital Signs - 24 hr 09/21/21 10:45 Temperature 97.5 F L Pulse Rate 62 Respiratory Rate 18 Blood Pressure 149/68 H Pulse Oximetry 100 Exam Const: General: comfortable and no acute distress HENMT: General nose exam: Normal nares present Eyes: General: appearance normal, both eyes and all related structures Neck: Neck: no JVD Resp: Auscultation: clear to auscultation bilaterally Cardio: Rate: regular rate Rhythm: regular rhythm GI: Inspection: non-distended GI Palp: Yes Soft to palpation Skin: General skin exam: normal color Neuro: General: gait normal Speech: normal speech Extrem: General: normal to inspection Psych: Mental Status: mental status grossly normal Assessment and Plan Assessment and plan (1) Colon cancer screening: Code(s): Z12.11 - Encounter for
[2021-09-21 12:09] VITALS: BP 93/42; PULSE 59; RESP 16; O2SAT 97
[2021-09-21 12:19] VITALS: BP 113/62; PULSE 55; RESP 23; O2SAT 100
[2021-09-21 12:29] VITALS: BP 122/70; PULSE 54; RESP 14; O2SAT 100
== END 2021-09-21 12:35 | disposition home or self-care (01) ==
PROVIDERS: PCP Family Medicine Adolescent Medicine; Visit Provider Internal Medicine Gastroenterology
PROC: 0DJD8ZZ Inspection of Lower Intestinal Tract, Via Natural or Artificial Opening Endoscopic (ICD-10-PCS; CPT 45378; principal; 2021-09-21 11:30)
DX: Z12.11 Encounter for screening for malignant neoplasm of colon (principal); K64.8 Other hemorrhoids
CPT/HCPCS: G0121; J2704; J7120